=== PATIENT | female | born 1950 ===

== ENCOUNTER 2016-11-07 10:00 | Outpatient (RCR) | payer OTHER | END 2016-11-25 | disposition home or self-care (01) | LOC: PTY 10:00 | DX: M54.5 Low back pain (principal) | CPT/HCPCS: 97110; 97140; 97161; G0283 ==

== ENCOUNTER 2016-11-30 10:00 | Outpatient (RCR) | payer OTHER | END 2016-12-26 | disposition home or self-care (01) | LOC: PTY 10:00 | DX: M54.5 Low back pain (principal) | CPT/HCPCS: 97110; 97140; G0283 ==

== ENCOUNTER 2017-01-17 08:01 | Outpatient (RCR) | payer OTHER | END 2017-01-26 | disposition home or self-care (01) | LOC: PTY 08:01 | DX: R26.89 Other abnormalities of gait and mobility (principal); E11.42 Type 2 diabetes mellitus with diabetic polyneuropathy; M54.5 Low back pain ==

== ENCOUNTER → 2017-03-28 | Outpatient (RCR) | payer OTHER | END | disposition home or self-care (01) | LOC: PTY 03-07 09:40 | DX: R26.89 Other abnormalities of gait and mobility (principal); E11.42 Type 2 diabetes mellitus with diabetic polyneuropathy ==